=== PATIENT | female | born 1965 | race Caucasian/White ===

== ENCOUNTER 2018-07-23 13:18 | Emergency (ER) | payer OTHER ==
--- NOTE | 2018-07-23 14:00 | EDPHY ---
H & P Stated Complaint: SOB x2D c CP, non-prod cough, denies N/V/D, Hx "narrow trach" Time Seen by Provider: 07/23/18 13:59 - Medical/Surgical History Hx Asthma: No Hx Chronic Respiratory Disease: No Hx Diabetes: No Hx Cardiac Disease: No Hx Renal Disease: No Hx Cirrhosis: No Hx Alcoholism: No Hx HIV/AIDS: No Hx Splenectomy or Spleen Trauma: No Other PMH: "Narrow trachea", - Social History Smoking Status: Never smoked Constitutional: Initial Vital Signs Temperature (C) 36.7 C 07/23/18 13:43 Heart Rate 85 07/23/18 13:43 Respiratory Rate 18 07/23/18 13:43 Blood Pressure 159/102 H 07/23/18 13:43 O2 Sat (%) 97 07/23/18 13:43 O2 Delivery Mode Room Air Allergies/Adverse Reactions: morphine Allergy (Verified 07/23/18 13:43) Home Medications: Medication Instructions Recorded Albuterol [Proventil Inhaler] 1 - 2 puffs IH Q4 #1 mdi 07/23/18 Buspar (*) 07/23/18 Naltrexone HCl 07/23/18 Zoloft 100mg (*) 07/23/18 Medical Decision Making - Diagnostics Imaging Results: Imaging Impressions Chest X-Ray 07/23/18 14:03 Impression: No evidence for acute cardiopulmonary abnormality. Imaging: I viewed and interpreted images myself ED Course/Re-evaluation: CHIEF COMPLAINT: Chest pain and shortness of breath HISTORY OF PRESENT ILLNESS: The patient is a 53 y/o female complaining of chest pain and shortness of breath onset 3 days ago. She has also been shaking and has a non-productive cough. The patients symptoms have not improved and she became concerned that she was having a heart attack. She denies having a recent upper respiratory illness. She denies personal or familial history of cardiac disease. No fever, headache, body aches, lightheadedness, heart palpitations, abdominal pain, urinary or bowel complaints, numbness, paresthesias. REVIEW OF SYSTEMS: A comprehensive 10 system review of systems is otherwise negative aside from elements mentioned in the history of present illness and medical decision making. PHYSICAL EXAM: HR, BP, O2 Sat, RR. Temp noted General Appearance: Tearful and anxious, alert, well hydrated, appropriate, and non-toxic appearing. Head: Atraumatic without scalp tenderness or obvious injury Eyes: Pupils equal, round, reactive to light and accommodation, EOMI, no trauma , no injection. Ears: Clear bilaterally, no perforation, normal landmarks Nose: Atraumatic, no rhinorrhea, clear. Throat: There is no erythema or exudates, no lesions, normal tonsils, mucus membranes moist. Neck: Supple, 2+ carotid upstroke, nontender, no lymphadenopathy. Respiratory: No retractions, no distress, no wheezes, and no accessory muscle use. Lungs are clear to auscultation bilaterally. Cardiovascular: Regular rate and rhythm, no murmurs, rubs, or gallops. Bilateral carotid, radial, dorsalis pedis, and posterior tibial pulses intact. Good capillary refill all extremities. Gastrointestinal: Abdomen is soft, nontender, non-distended, no masses, no rebound, no guarding, no peritoneal signs. Musculoskeletal: Normal active ROM of all extremities, atraumatic. Neurological: Alert, appropriate, and interactive. The patient has normal DTRs and non-focal cranial nerves, motor, sensory, and cerebellar exam. Skin: No rashes, good turgor, no nodules on palpation. Past medical history: Denies Past surgical history: Denies Family history: Denies Social history: Lives in [place], single, employed DIAGNOSTICS/PROCEDURES/CRITICAL CARE TIME: EKG: The 12 lead EKG was interpreted by myself as sinus rhythm with a rate of 90 and borderline LVH. See hard copy and/or "tracemaster" electronic copy for interpretation. Chest x-ray: No acute findings. DIFFERENTIAL DIAGNOSIS: The differential diagnosis for the patient's chest pain included but was not limited to anxiety, myocardial ischemia, pulmonary embolus, chest wall pain, pleural inflammation, and pulmonary infectious causes. The differential diagnosis for the patient's shortness of breath and hypoxemia included but was not limited to pneumonia, myocardial infarction, acute mountain sickness, high altitude pulmonary edema, congestive heart failure, and pulmonary embolus. MEDICAL DECISION MAKING: The patient is a 53 y/o female presenting with chest pain, shortness of breath, a cough and feeling shaky onset 3 days ago. The patient is anxious and tearful, but has an otherwise normal physical exam. I suspect she is having anxiety which is causing her symptoms. Labs, EKG, and chest x-ray ordered; 500mL IV NS, 1mg IV Ativan, 125mg IV Solu-Medrol and DuoNeb administered. 1359: I interpreted patients EKG as sinus rhythm with a rate of 90 and borderline LVH. Her troponin is negative. 1428: I interpreted patients chest x-ray which reveals no acute findings. 1450: Reassessed patient and discussed imaging and laboratory findings. I have prescribed her a Medrol-dose pack and albuterol inhaler fo the viral bronchitis , which I suspect she has. Return precautions provided; patient is comfortable with this plan. - Data Points Laboratory Results: Laboratory Results 07/23/18 14:00 07/23/18 14:00 07/23/18 07/23/18 07/23/18 14:25 14:00 14:00 WBC RBC Hgb Hct MCV MCH MCHC RDW Plt Count MPV Neut % (Auto) Lymph % (Auto) [place] % (Auto) Eos % (Auto) Baso % (Auto) Nucleat RBC Rel Count Absolute Neuts (auto) Absolute Lymphs (auto) Absolute Monos (auto) Absolute Eos (auto) Absolute Basos (auto) Absolute Nucleated RBC Immature Gran % Immature Gran # Sodium 132 mEq/L L mEq/L (135-145) Potassium 3.9 mEq/L mEq/L (3.5-5.2) Chloride 94 mEq/L L mEq/L (97-110) Carbon Dioxide 24 mEq/l mEq/l (22-31) Anion Gap 14 mEq/L mEq/L (6-14) BUN 9 mg/dL mg/dL (7-23) Creatinine 0.6 mg/dL mg/dL (0.6-1.0) Estimated GFR > 60 Glucose 110 mg/dL H mg/dL (70-100) Calcium 9.6 mg/dL mg/dL (8.5-10.4) POC Troponin I 0.01 ng/mL ng/mL (0.00-0.08) NT-Pro-B Natriuret Pep 299 pg/mL H pg/mL (0-125) Nasal Influenza A PCR Pending Nasal Influenza B PCR Pending RSV (PCR) Pending 07/23/18 14:00 WBC 5.49 10^3/uL 10^3/uL (3.80-9.50) RBC 4.56 10^6/uL 10^6/uL (4.18-5.33) Hgb 13.9 g/dL g/dL (12.6-16.3) Hct 40.4 % % (38.0-47.0) MCV 88.6 fL fL (81.5-99.8) MCH 30.5 pg pg (27.9-34.1) MCHC 34.4 g/dL g/dL (32.4-36.7) RDW 11.8 % % (11.5-15.2) Plt Count 224 10^3/uL 10^3/uL (150-400) MPV 9.0 fL fL (8.7-11.7) Neut % (Auto) 78.6 % H % (39.3-74.2) Lymph % (Auto) 16.8 % % (15.0-45.0) [place] % (Auto) 4.2 % L % (4.5-13.0) Eos % (Auto) 0.0 % L % (0.6-7.6) Baso % (Auto) 0.2 % L % (0.3-1.7) Nucleat RBC Rel Count 0.0 % % (0.0-0.2) Absolute Neuts (auto) 4.32 10^3/uL 10^3/uL (1.70-6.50) Absolute Lymphs (auto) 0.92 10^3/uL L 10^3/uL (1.00-3.00) Absolute Monos (auto) 0.23 10^3/uL L 10^3/uL (0.30-0.80) Absolute Eos (auto) 0.00 10^3/uL L 10^3/uL (0.03-0.40) Absolute Basos (auto) 0.01 10^3/uL L 10^3/uL (0.02-0.10) Absolute Nucleated RBC 0.00 10^3/uL 10^3/uL (0-0.01) Immature Gran % 0.2 % % (0.0-1.1) Immature Gran # 0.01 10^3/uL 10^3/uL (0.00-0.10) Sodium Potassium Chloride Carbon Dioxide Anion Gap BUN Creatinine Estimated GFR Glucose Calcium POC Troponin I NT-Pro-B Natriuret Pep Nasal Influenza A PCR Nasal Influenza B PCR RSV (PCR) Medications Given: Discontinued Medications Albuterol/Ipratropium (Duoneb) 3 ml IH EDNOW ONE Stop: 07/23/18 14:04 Last Admin: 07/23/18 14:18 Dose: 3 ml Sodium Chloride (Ns) 500 mls @ 1,000 mls/hr IV EDNOW ONE PRN Reason: Protocol Stop: 07/23/18 14:32 Last Admin: 07/23/18 14:18 Dose: 500 mls Lorazepam (Ativan Injection) 1 mg IVP EDNOW ONE Stop: 07/23/18 14:04 Last Admin: 07/23/18 14:18 Dose: 1 mg Methylprednisolone Sodium Succinate (Solu-Medrol) 125 mg IVP EDNOW ONE Stop: 07/23/18 14:04 Last Admin: 07/23/18 14:18 Dose: 125 mg Point of Care Test Results: Chemistry 07/23/18 14:00 POC Troponin I 0.01 ng/mL ng/mL (0.00-0.08) Departure - Departure Disposition: Home, Routine, Self-Care Clinical Impression: Bronchitis, Acute anxiety Condition: Good Instructions: Acute Bronchitis (ED) Additional Instructions: 1. Use ibuprofen and Tylenol as needed for fever and body aches. 2. Follow up with your primary care physician within 72 hours for reevaluation. 3. Drink plenty of fluids. 4. Return to the emergency department immediately for high fever, severe headache or neck pain, difficulty breathing, abdominal pain, rash or other worsening of condition. 5. Take the Medrol dose pack and use the inhaler as prescribed for the viral bronchitis. Referrals: Analy Carrillo MD [Medical Doctor] - As per Instructions Prescriptions: Albuterol [Proventil Inhaler] 1 - 2 puffs IH Q4 #1 mdi Report Scribed for: Sidney Monroe Report Scribed by: Ana Gr Date of Report: 07/23/18 Time of Report: 14:05
[2018-07-23] MEDS ORDERED: NS 500 ML IV ONE (14:03)
[2018-07-23] MEDS ORDERED: LORazepam 2 MG/ML INJ IVP ONE (14:03)
[2018-07-23] MEDS ORDERED: IPRATROPIUM/ALBUTEROL 3 ML DEYVIAL IH ONE (14:03)
[2018-07-23] MEDS ORDERED: methylPREDNISolone SOD SUCC 125 MG/2 ML VIAL IVP ONE (14:03)
[2018-07-23 14:24] LABS: PLATELET COUNT 224 10^3/uL (150-400)
--- NOTE | 2018-07-23 14:46 | CPEKG ---
Test Reason : OPEN Blood Pressure : / mmHG Vent. Rate : 090 BPM Atrial Rate : 090 BPM P-R Int : 163 ms QRS Dur : 085 ms QT Int : 316 ms P-R-T Axes : 046 -56 047 degrees QTc Int : 387 ms Sinus rhythm Probable left atrial enlargement Left anterior fascicular block Probable left ventricular hypertrophy Anterior Q waves, possibly due to LVH Confirmed by Sidney Monroe [id number] on 07/23/2018 2:46:17 PM Referred By: Sidney Monroe Confirmed By:Sidney Monroe
[2018-07-23 15:03] VITALS: BP 125/86
== END 2018-07-23 15:02 | disposition home or self-care (01) ==
DX: J40 Bronchitis, not specified as acute or chronic (principal); F41.9 Anxiety disorder, unspecified; E86.9 Volume depletion, unspecified
CPT/HCPCS: 84484-ER; 96374; J2060; J2930